=== PATIENT | male | born 1985 | race Caucasian/White ===

== ENCOUNTER 2020-07-22 15:31 | Observation (INO) | payer OTHER ==
--- NOTE | 2020-07-22 15:45 | Event Note ---
ED Screening Note ED Screening Note: severe abd pain hx liver disease/eso jeannie. denies current etoh This initial assessment/diagnostic orders/clinical plan/treatment(s) is/are subject to change based on patients health status, clinical progression and re- assessment by fellow clinical providers in the ED. Further treatment and workup at subsequent clinical providers discretion. Patient/guardian urged not to elope from the ED as their condition may be serious if not clinically assessed and managed. Initial orders include: labs/ER for eval
[2020-07-22 16:00] LABS: Basophils % (Auto) 0.6 % (0.0-1.8); Eosinophils % (Auto) 0.2 % (0.0-4.3); Hematocrit 31.8 % (35.5-45.6); Lymphocytes # (Auto) 0.7 K/mm3 (1.2-5.4); Lymphocytes % (Auto) 14.4 % (13.4-35.0); Mean Corpuscular HGB Conc 31 % (32-34); Mean Corpuscular Volume 73 fl (84-94); Monocytes # (Auto) 0.4 K/mm3 (0.0-0.8); Monocytes % (Auto) 7.5 % (0.0-7.3); Red Blood Count 4.35 M/mm3 (3.65-5.03)
[2020-07-22 16:09] LABS: INR 1.17 (0.87-1.13)
[2020-07-22 16:10] LABS: Bacteria,Urine 1+ /HPF (Negative); Mucus,Urine 1+ /HPF; WBC,Urine < 1.0 /HPF (0.0-6.0)
[2020-07-22 16:11] LABS: Platelet Count 60 K/mm3 (140-440)
[2020-07-22 16:11] LABS: Bilirubin,Urine NEG (Negative); Blood,Urine NEG (Negative); Color,Urine Amber (Yellow)
[2020-07-22 17:19] LABS: Alanine Aminotransferase 20 units/L (7-56); Albumin 4.3 g/dL (3.9-5); BUN/Creatinine Ratio 16; Blood Urea Nitrogen 8 mg/dL (9-20); Calcium 8.8 mg/dL (8.4-10.2); Hemolysis Index 3
[2020-07-22] MEDS ORDERED: ONDANSETRON 4 MG/2 ML INJ IV ONE (17:24)
--- NOTE | 2020-07-22 17:26 | Emergency Department Report ---
ED GI Bleed HPI - General Chief complaint: Abdominal Pain Stated complaint: ABDOMINAL PAIN Time Seen by Provider: 07/22/20 17:15 Source: patient Mode of arrival: Ambulatory Limitations: No Limitations - History of Present Illness Initial comments: 34-year-old male, history of alcoholic liver cirrhosis, esophageal varices, GI bleed, presents to ED with complaint of pain with associated hematemesis and bloody stools. States symptoms began this morning. He reports LUQ, LLQ, RLQ abdominal pain. Patient states he has had approximately 6 episodes of he matemesis. Patient states stools are brown with bright red blood mixed in. Patient underwent esophageal variceal banding in August 2019 and again in October 2019. Patient has not followed up with any outpatient GI appointments, he is no longer taking any GI medications. Patient states he stopped drinking on a daily basis last year. States he only drinks occasionally. States his last drink was last week. MD complaint: gross hematemesis, gross hematochezia -: This morning Location: LUQ, LLQ, RLQ Quality: cramping Consistency: constant Improves with: none Worsens with: none Context: history of GI bleed, liver disease, known esophageal varices Associated Symptoms: abdominal pain, nausea, vomiting - Related Data Previous Rx's Medication Instructions Recorded Last Taken Type Pantoprazole [Protonix TAB] 40 mg PO BID #60 tablet 08/28/19 08/25/19 Rx HYDROcodone/APAP 5-325 [[place] 1 each PO Q6HR PRN #10 tablet 08/30/19 08/25/19 Rx 5-325 mg TAB] Ferrous Sulfate [Feosol 325 MG tab] 325 mg PO BID #60 tablet 11/10/19 Unknown Rx Sucralfate [Carafate] 1 gm PO Q6HR #30 tablet 11/10/19 Unknown Rx Allergies Allergy/AdvReac Type Severity Reaction Status Date / Time No Known Allergies Allergy Verified 07/22/20 15:41 ED Review of Systems ROS: Stated complaint: ABDOMINAL PAIN Other details as noted in HPI ED Past Medical Hx - Past Medical History Hx Hypertension: No Hx Heart Attack/AMI: No Hx Congestive Heart Failure: No Hx Diabetes: No Hx Deep Vein Thrombosis: No Hx Liver Disease: Yes Hx Renal Disease: No Hx Sickle Cell Disease: No Hx Seizures: No Hx Kidney Stones: No Hx Asthma: No Hx COPD: No Hx Tuberculosis: No Hx Dementia: No Hx HIV: No Additional medical history: Esophageal varices - Surgical History Hx Coronary Stent: No Hx Open Heart Surgery: No Hx Pacemaker: No Hx Internal Defibrillator: No Hx Cholecystectomy: No Hx Appendectomy: No Additional Surgical History: Esophageal banding - Social History Smoking Status: Never Smoker Substance Use Type: None - Medications Home Medications: Home Medications Medication Instructions Recorded Confirmed Last Taken Type Pantoprazole [Protonix TAB] 40 mg PO BID #60 tablet 08/28/19 11/09/19 08/25/19 Rx HYDROcodone/APAP 5-325 [[place] 1 each PO Q6HR PRN #10 tablet 08/30/19 11/09/19 08/25/19 Rx 5-325 mg TAB] Ferrous Sulfate [Feosol 325 MG tab] 325 mg PO BID #60 tablet 11/10/19 Unknown Rx Sucralfate [Carafate] 1 gm PO Q6HR #30 tablet 11/10/19 Unknown Rx ED Physical Exam - General Limitations: No Limitations General appearance: alert, in no apparent distress - Head Head exam: Present: atraumatic, normocephalic - Eye Eye exam: Present: normal appearance, EOMI - ENT ENT exam: Present: mucous membranes moist - Neck Neck exam: Present: normal inspection - Respiratory Respiratory exam: Present: normal lung sounds bilaterally. Absent: respiratory distress - Cardiovascular Cardiovascular Exam: Present: normal rhythm, tachycardia - GI/Abdominal GI/Abdominal exam: Present: soft, tenderness (RLQ, LLQ, LUQ tender). Absent: distended - Rectal Rectal exam: Present: other (rectal exam performed, no stool present) - Extremities Exam Extremities exam: Present: normal inspection - Neurological Exam Neurological exam: Present: alert, oriented X3 - Psychiatric Psychiatric exam: Present: normal affect, normal mood - Skin Skin exam: Present: warm, dry, intact, normal color ED Course Vital Signs 07/22/20 07/22/20 07/22/20 15:45 18:35 18:38 Temperature 98.2 F 99.1 F Pulse Rate 111 H 110 H 111 H Respiratory 24 16 14 Rate Blood Pressure 173/113 Blood Pressure 137/94 [Left] O2 Sat by Pulse 98 97 98 Oximetry 07/22/20 07/22/20 07/22/20 19:57 20:08 21:35 Temperature Pulse Rate 98 H 95 H Respiratory 20 20 18 Rate Blood Pressure Blood Pressure 144/93 159/100 [Left] O2 Sat by Pulse 97 96 Oximetry - Consultations Consultation #1: 07/22/20 20:13 Spoke w/ FELIPE Solorio. Recommends admission. Keep NPO after MN. Will scope tomorrow. No Octreotide for now, only Protonix. ED Medical Decision Making - Lab Data Result diagrams: 07/22/20 15:41 07/22/20 15:41 - Radiology Data Radiology results: report reviewed, image reviewed - Medical Decision Making 34-year-old male with history of cirrhosis, esophageal varices, presents to ED with abdominal pain, hematemesis. No episodes of hematemesis here in the ED. CT abdomen/pelvis unremarkable for any acute findings. Hemoglobin is 10. Patient initially tachycardic upon arrival, heart rate has improved with IV fluids and pain medication. Patient is currently hemodynamically stable. I have spoken with on-call GI, who recommends admission for scope tomorrow since patient has not followed up with any outpatient GI appointments and is not currently taking any of his GI medications. Patient will be admitted to hospitalist, Dr. Aguilera, for further management. - Differential Diagnosis GI bleed, esophageal varices, ulcer Critical care attestation.: If time is entered above; I have spent that time in minutes in the direct care of this critically ill patient, excluding procedure time. ED Disposition Clinical Impression: Abdominal pain, GI bleed Disposition: OP ADMIT IP TO THIS HOSP Is pt being admited?: Yes Condition: Stable Time of Disposition: 21:31
[2020-07-22] MEDS ORDERED: MORPHINE 2 MG/1 ML INJ IV ONE ×2 (17:45→19:58)
[2020-07-22] MEDS ORDERED: SODIUM CHLORIDE 0.9% 1000 ML 1,000 ML IV ONE (18:46)
--- NOTE | 2020-07-22 19:53 | Cat Scan Report ---
CT ABDOMEN AND PELVIS WITH CONTRAST INDICATION: abd pain, hematemesis CONTRAST: 100 cc Omnipaque 300 IV COMPARISON: 08/29/[address] scans at this location are performed using CT dose reduction for ALARA by means of automated e xposure control. FINDINGS: A small noncalcified nodule is seen in the lateral segment of the right middle lobe in an a froylan not visualized on prior study. Lung bases otherwise are clear. No pneumoperitoneum is seen. No significant abdominal wall herniation is noted. No lymphadenopathy is seen. No free fluid is noted. Mild colonic diverticulosis is seen without evidence of diverticulitis . Appendix appears within normal limits. No evidence of bowel obstruction is seen. Some portions of t he colon are not well evaluated due to lack of distention but no definite inflammation is seen. No ur inary obstructive changes or obvious calculi are seen. No focal inflammatory changes are noted. Fatty infiltration of the liver is again seen with hepatomegaly. Liver measures 19.7 cm in length. Heterog enous appearance is probably due to increasing fatty infiltration with innumerable tiny hypodensity s een likely related to this process though I cannot completely exclude an infiltrative process. The sp fran is mildly enlarged and has a length of 15.3 cm. No focal splenic abnormalities are seen. No urin irais obstructive changes are seen. No abdominal masses are noted. IMPRESSION: 1. No definite acute abnormalities are seen 2. Mildly worsening fatty infiltration of the liver with hepatomegaly. Innumerable tiny hypodensities are seen throughout the liver likely related to worsening fatty infiltration but I would suggest fol low-up and clinical correlation. Signer Name: Suhas Rivera MD Signed: 07/22/2020 7:48 PM Workstation Name: [id number]
[2020-07-22] MEDS ORDERED: PANTOPRAZOLE 40 MG INJ IV ONE (20:12)
[2020-07-22] MEDS ORDERED: ONDANSETRON 4 MG/2 ML INJ IV PRN (21:36)
[2020-07-22] MEDS ORDERED: SODIUM CHLORIDE 0.9% 1000 ML 1,000 ML IV SCH (21:45)
--- NOTE | 2020-07-22 21:46 | History and Physical Report ---
History of Present Illness Date of examination: 07/22/20 Date of admission: 07/22/2020 Chief complaint: Hematemesis Abdominal Pain History of present illness: 34-year-old male with known history of alcoholic liver disease, esophageal varices and GI bleed presenting to the emergency room today complaining of hematemesis and also having some bloody stool. Symptoms are said to have started early this morning. He has been having lower abdominal pain. He denies any fever or chills, no chest pain or shortness of breath, no headache or dizziness. Patient indicates that he has had about 6 episodes of hematemesis prior to presenting in the emergency room. He has had some brown stool with mixed bright red blood earlier today. Patient was seen by GI in August and in October 2019 and had a esophageal banding. He has not followed up with any accounts payable manager since then because of insurance issues. Patient is admits that he continues to drink alcohol but he has reduced the amount. Last alcohol intake was about 2 days ago. Upon arrival in the emergency room patient was found to be tachycardic. Work-up in the emergency room, CT scan of the abdomen and pelvis was unremarkable. Hemoglobin was found to be 10. Overhead Door Technician Dr. Garcia was consulted by the ER physician and recommendation was to place patient on Protonix IV. Patient will be evaluated for endoscopy in the a.m. Patient is being admitted for GI bleed. Past History Past Medical History: liver disease Past Surgical History: Other (Esophageal Banding) Social history: alcohol abuse (Last alcohol intake was 2 days ago) Family history: no significant family history Medications and Allergies Allergies Allergy/AdvReac Type Severity Reaction Status Date / Time No Known Allergies Allergy Verified 07/22/20 15:41 Home Medications Medication Instructions Recorded Confirmed Last Taken Type Pantoprazole [Protonix TAB] 40 mg PO BID #60 tablet 08/28/19 11/09/19 08/25/19 Rx HYDROcodone/APAP 5-325 [[place] 1 each PO Q6HR PRN #10 tablet 08/30/19 11/09/19 08/25/19 Rx 5-325 mg TAB] Ferrous Sulfate [Feosol 325 MG tab] 325 mg PO BID #60 tablet 11/10/19 Unknown Rx Sucralfate [Carafate] 1 gm PO Q6HR #30 tablet 11/10/19 Unknown Rx Active Meds: Active Medications Sodium Chloride (Nacl 0.9% 1000 Ml) 1,000 mls @ 125 mls/hr IV DIRECT STEPHAN Morphine Sulfate (Morphine 2 Mg/1 Ml Inj) 2 mg IV Q4H PRN PRN Reason: Pain, Moderate (4-6) Ondansetron HCl (Ondansetron 4 Mg/2 Ml Inj) 4 mg IV Q8H PRN PRN Reason: Nausea And Vomiting Sodium Chloride (Sodium Chloride 0.9% 10 Ml Flush Syringe) 10 ml IV BID STEPHAN Sodium Chloride (Sodium Chloride 0.9% 10 Ml Flush Syringe) 10 ml IV PRN PRN PRN Reason: LINE FLUSH Review of Systems Constitutional: no fever, no chills Ears, nose, mouth and throat: no nasal congestion, no sore throat Cardiovascular: no chest pain, no palpitations Respiratory: no cough, no shortness of breath Gastrointestinal: abdominal pain, nausea, vomiting, hematemesis, BRBPR Genitourinary Male: no dysuria, no hematuria, no urinary frequency Rectal: bleeding, no pain Integumentary: no rash, no pruritis Neurological: no headaches, no confusion Psychiatric: no anxiety, no depression Exam - Constitutional Vitals: Temp Pulse Resp BP Pulse Ox 99.1 F 95 H 18 159/100 96 07/22/20 18:38 07/22/20 21:35 07/22/20 21:35 07/22/20 21:35 07/22/20 21:35 General appearance: Present: no acute distress, well-nourished - EENT Eyes: Present: PERRL, EOM intact. Absent: scleral icterus ENT: hearing intact, clear oral mucosa, dentition normal - Neck Neck: Present: supple, normal ROM - Respiratory Respiratory effort: normal Respiratory: bilateral: CTA - Cardiovascular Rhythm: regular Heart Sounds: Present: S1 & S2. Absent: gallop, systolic murmur, diastolic murmur, rub, click - Extremities Extremities: no ischemia, pulses intact, pulses symmetrical, No edema, normal temperature, normal color, Full ROM Peripheral Pulses: within normal limits - Abdominal General gastrointestinal: Present: soft, tender (Mild right upper and right lo wer quadrant tenderness,no guarding. No rebound tenderness.), non-distended, normal bowel sounds. Absent: hepatomegaly, splenomegaly, mass - Integumentary Integumentary: Present: clear, warm, dry. Absent: rash - Musculoskeletal Musculoskeletal: strength equal bilaterally - Psychiatric Psychiatric: appropriate mood/affect, intact judgment & insight, memory intact, cooperative - Neurologic Neurologic: CNII-XII intact, no focal deficits, moves all extremities, other (Mildly anxious and tremulous) Results - Labs CBC & Chem 7: 07/22/20 15:41 07/22/20 15:41 Labs: Abnormal lab results 07/22/20 07/22/20 07/22/20 Range/Units 15:41 15:41 15:41 Hgb 10.0 L (11.8-15.2) gm/dl Hct 31.8 L (35.5-45.6) % MCV 73 L (84-94) fl MCH 23 L (28-32) pg MCHC 31 L (32-34) % RDW 20.0 H (13.2-15.2) % Plt Count 60 L (140-440) K/mm3 [place] % (Auto) 7.5 H (0.0-7.3) % Lymph # (Auto) 0.7 L (1.2-5.4) K/mm3 Seg Neutrophils % 77.3 H (40.0-70.0) % INR 1.17 H (0.87-1.13) BUN 8 L (9-20) mg/dL Creatinine 0.5 L (0.8-1.3) mg/dL AST 58 H (5-40) units/L Alkaline Phosphatase 219 H (35-129) units/L Lipase 93 H (13-60) units/L Assessment and Plan - Patient Problems (1) GI bleed Current Visit: Yes Status: Acute Plan to address problem: Patient has been made n.p.o. after midnight. Patient has known history of alcoholic liver disease. We will monitor CBC. Consult already placed to accounts payable manager for evaluation. (2) Abdominal pain Current Visit: Yes Status: Acute Plan to address problem: Patient has known history of alcoholic liver disease. CT scan of the abdomen and pelvis was unremarkable. Patient placed on IV analgesic medication as needed for pain. (3) Alcoholic liver disease Current Visit: No Status: Acute Plan to address problem: Patient counseled on quitting alcohol abuse. Will monitor liver enzymes. We await further evaluation and recommendation by accounts payable manager. (4) DVT prophylaxis Current Visit: No Status: Acute Plan to address problem: Patient placed on sequential compression device. (5) Full code status Current Visit: Yes Status: Acute Plan to address problem: Patient is full code.
[2020-07-22] MEDS ORDERED: THIAMINE 100 MG, FOLIC ACID 1 MG, MULTIPLE VITAMIN INJ, ADULT 10 ML in SODIUM CHLORIDE ... IV ONE (23:05)
[2020-07-22] MEDS: MORPHINE 2 MG/1 ML INJ IV PRN (23:09)
[2020-07-23] MEDS: MORPHINE 2 MG/1 ML INJ IV PRN ×2 (04:54→18:01)
[2020-07-23 05:28] LABS: Eosinophils % (Auto) 0.8 % (0.0-4.3); Monocytes # (Auto) 0.6 K/mm3 (0.0-0.8); Monocytes % (Auto) 10.9 % (0.0-7.3)
[2020-07-23 05:31] LABS: Hematocrit 28.8 % (35.5-45.6); Red Blood Count 3.94 M/mm3 (3.65-5.03)
[2020-07-23 05:32] LABS: INR 1.23 (0.87-1.13)
[2020-07-23 05:33] LABS: Blood Urea Nitrogen 7 mg/dL (9-20); Calcium 7.8 mg/dL (8.4-10.2); Hemolysis Index 0
[2020-07-23 05:36] LABS: Basophils % (Auto) 0.4 % (0.0-1.8); Lymphocytes % (Auto) 19.2 % (13.4-35.0); Mean Corpuscular HGB Conc 31 % (32-34); Mean Corpuscular Volume 73 fl (84-94); Platelet Count 52 K/mm3 (140-440); Red Cell Distribution Width 19.2 % (13.2-15.2)
[2020-07-23 05:38] LABS: BUN/Creatinine Ratio 12
[2020-07-23] MEDS: PANTOPRAZOLE 40 MG INJ IV SCH ×2 (10:08→22:23)
[2020-07-23] MEDS: HYDROmorphone 1 MG/1 ML INJ IV PRN ×2 (14:16→23:19)
--- NOTE | 2020-07-23 15:13 | Anesthesia Consultation ---
Anesthesia Consult and Med Hx - Airway Anesthetic Teeth Evaluation: Good ROM Head & Neck: Adequate Mental/Hyoid Distance: Adequate Mallampati Class: Class III Intubation Access Assessment: Possibly Difficult - Pre-Operative Health Status ASA Pre-Surgery Classification: ASA3 Proposed Anesthetic Plan: MAC - Pulmonary Hx Respiratory Symptoms: No - Cardiovascular System Hx Hypertension: No Hx Heart Attack/AMI: No - Central Nervous System CVA: No - Endocrine Hx Renal Disease: No Hx Cirrhosis: Yes (EtOH) Hx Insulin Dependent Diabetes: No Hx Non-Insulin Dependent Diabetes: No Hx Thyroid Disease: No - Hematic Hx Anemia: Yes (w/ thrombocytopenia) - Other Systems Hx Alcohol Use: Yes (EtOH abuse)
--- NOTE | 2020-07-23 15:26 | Anesthesia Day of Surgery ---
Anesthesia Day of Surgery - Day of Surgery Patient Examined: Yes Patient H&P Reviewed: Yes Patient is NPO: Yes
[2020-07-23] MEDS: SODIUM CHLORIDE 0.9% 1000 ML 1,000 ML IV SCH ×2 (15:30→23:19)
[2020-07-23] MEDS ORDERED: propofoL 200 MG/20 ML VIAL IV ONE ×2 (16:11→16:16)
[2020-07-23] MEDS ORDERED: LIDOCAINE MPF (2%) 20 MG/1 ML VIAL 5 ML ONE (16:11)
[2020-07-23] MEDS ORDERED: MIDAZOLAM 2 MG/2 ML INJ ONE (16:15)
--- NOTE | 2020-07-23 16:30 | Post Operative Note ---
Pre-op diagnosis: gi bleed Post-op diagnosis: same Findings: EGD: Grade I varices w/o bleeding stigmata - small hiatal hernia - moderate diffuse gastritis of the gastric body (bx's) - otherwise normal Procedure: EGD w/ bx Anesthesia: MAC Surgeon: JEFF ISBELL Estimated blood loss: none Pathology: list Specimen disposition: to lab Condition: stable Disposition: floor
--- NOTE | 2020-07-23 16:54 | Progress Note ---
Assessment and Plan Assessment and Plan - Patient Problems (1) GI bleed Current Visit: Yes Status: Acute Plan to address problem: Stable No further bleeding (2) Abdominal pain Current Visit: Yes Status: Acute Plan to address problem: Patient has known history of alcoholic liver disease. CT scan of the abdomen and pelvis was unremarkable. Patient placed on IV analgesic medication as needed for pain. (3) Alcoholic liver disease Current Visit: No Status: Acute Plan to address problem: Patient counseled on quitting alcohol abuse. Will monitor liver enzymes. We await further evaluation and recommendation by qc analyst. (4) DVT prophylaxis Current Visit: No Status: Acute Plan to address problem: Patient placed on sequential compression device. (5) Full code status Current Visit: Yes Status: Acute Plan to address problem: Patient is full code. Subjective Date of service: 07/23/20 Principal diagnosis: GI bleeding Interval history: 34-year-old male with known history of alcoholic liver disease, esophageal varices and GI bleed presenting to the emergency room today complaining of hematemesis and also having some bloody stool. Symptoms are said to have started early this morning. He has been having lower abdominal pain. He denies any fever or chills, no chest pain or shortness of breath, no headache or dizziness. Patient indicates that he has had about 6 episodes of hematemesis prior to presenting in the emergency room. He has had some brown stool with mixed bright red blood earlier today. Patient was seen by GI in August and in October 2019 and had a esophageal banding. He has not followed up with any qc analyst since then because of insurance issues. Patient is admits that he continues to drink alcohol but he has reduced the amount. Last alcohol intake was about 2 days ago. Upon arrival in the emergency room patient was found to be tachycardic. Work-up in the emergency room, CT scan of the abdomen and pelvis was unremarkable. Hemoglobin was found to be 10. Chief Operator Dr. Garcia was consulted by the ER physician and recommendation was to place patient on Protonix IV. Patient will be evaluated for endoscopy in the a.m. Patient is being admitted for GI bleed. S/p EGD Grade 1 varices No active bleeding Objective - Constitutional Vitals: Vital Signs - 12hr 07/23/20 07/23/20 07/23/20 08:19 12:30 15:15 Temperature 98.1 F 98.1 F 98.6 F Pulse Rate 91 H 101 H 91 H Respiratory 18 18 17 Rate Blood Pressure 153/91 151/101 162/92 O2 Sat by Pulse 99 100 97 Oximetry 07/23/20 15:20 Temperature 98.6 F Pulse Rate 91 H Respiratory 17 Rate Blood Pressure 162/92 O2 Sat by Pulse 97 Oximetry General appearance: Present: no acute distress, well-nourished - EENT Eyes: PERRL, EOM intact ENT: hearing intact, clear oral mucosa Ears: bilateral: normal - Neck Neck: supple, normal ROM - Respiratory Respiratory effort: normal Respiratory: bilateral: CTA - Breasts Breasts: normal - Cardiovascular Heart rate: 78 Rhythm: regular Heart Sounds: Present: S1 & S2. Absent: gallop, rub Extremities: pulses intact, No edema, normal color, Full ROM - Gastrointestinal General gastrointestinal: Present: soft, non-tender, non-distended, normal bowel sounds - Genitourinary Male genitourinary: normal - Integumentary Integumentary: clear, warm, dry - Musculoskeletal Musculoskeletal: 1, strength equal bilaterally - Neurologic Neurologic: moves all extremities - Psychiatric Psychiatric: memory intact, appropriate mood/affect, intact judgment & insight - Labs CBC & Chem 7: 07/24/20 05:16 07/24/20 05:16 Labs: Abnormal lab results 07/22/20 07/23/20 07/23/20 Range/Units 15:41 04:45 04:45 Hgb 9.0 L (11.8-15.2) gm/dl Hct 28.8 L (35.5-45.6) % MCV 73 L (84-94) fl MCH 23 L (28-32) pg MCHC 31 L (32-34) % RDW 19.2 H (13.2-15.2) % Plt Count 52 L (140-440) K/mm3 [place] % (Auto) 10.9 H (0.0-7.3) % Lymph # (Auto) 1.0 L (1.2-5.4) K/mm3 PT 15.3 H (12.2-14.9) Sec. INR 1.23 H (0.87-1.13) Sodium (137-145) mmol/L Potassium (3.6-5.0) mmol/L Chloride (98-107) mmol/L BUN 8 L (9-20) mg/dL Creatinine 0.5 L (0.8-1.3) mg/dL Calcium (8.4-10.2) mg/dL AST 58 H (5-40) units/L Alkaline Phosphatase 219 H (35-129) units/L Lipase 93 H (13-60) units/L 03// Range/Units 04:45 Hgb (11.8-15.2) gm/dl Hct (35.5-45.6) % MCV (84-94) fl MCH (28-32) pg MCHC (32-34) % RDW (13.2-15.2) % Plt Count (140-440) K/mm3 [place] % (Auto) (0.0-7.3) % Lymph # (Auto) (1.2-5.4) K/mm3 PT (12.2-14.9) Sec. INR (0.87-1.13) Sodium 135 L (137-145) mmol/L Potassium 3.5 L (3.6-5.0) mmol/L Chloride 96.9 L (98-107) mmol/L BUN 7 L (9-20) mg/dL Creatinine 0.6 L (0.8-1.3) mg/dL Calcium 7.8 L (8.4-10.2) mg/dL AST (5-40) units/L Alkaline Phosphatase (35-129) units/L Lipase (13-60) units/L
--- NOTE | 2020-07-23 17:19 | Operative Report ---
PROCEDURE: EGD with cold biopsy. INDICATIONS: 1. Anemia. 2. GI bleed. MEDICATIONS: Propofol per CEMETERY COUNSELOR. COMPLICATIONS: None. DESCRIPTION OF PROCEDURE: The patient brought to the procedure suite. The patient had procedure discussed with him at length. All risks, complications, and benefits discussed after which the patient signed for the procedure performed. The patient was placed in left lateral decubitus position. Mouth block was placed in the patient's oral cavity. After adequate sedation medication as above, endoscope placed in mouth and brought to the level of the second portion of duodenum. Retroflexion view performed. The patient's vital signs remained stable throughout the procedure. FINDINGS: There were two columns of grade 1 varices without bleeding stigmata noted at distal third of the esophagus. No interventions were necessary or done. There was a small hiatal hernia at GE junction at 40 cm from the gums. Esophagus otherwise appeared to be normal. There was moderate diffuse gastritis noted in the gastric body. Biopsies were taken and sent to pathology. No obvious bleeding was noted. Mild gastritis noted in the antrum. The stomach otherwise appeared to be normal. Duodenum appeared to be normal. Retroflexion view performed in the stomach showed no other pathology other than noted above. The patient tolerated the procedure well. No complications during the procedure. IMPRESSION: 1. Grade 1 varices without bleeding stigmata. 2. Small hiatal hernia. 3. Moderate gastritis throughout the gastric body with signs of portal gastropathy with biopsies performed. 4. Otherwise, grossly normal EGD. RECOMMENDATIONS: 1. Follow up biopsy results. 2. If H. pylori positive, treat. 3. PPI daily. 4. Start p.o. and advance his diet. 5. If H and H stable in a.m., okay to discharge from GI standpoint. JOB# [id number] CAB/NTS
--- NOTE | 2020-07-24 01:41 | Consultation ---
REFERRING PHYSICIAN: Gina Reyes MD INDICATION: 1. Cirrhosis. 2. Gastrointestinal bleed. HISTORY OF PRESENT ILLNESS: The patient is a 34-year-old male with history of alcohol liver disease and esophageal varices with GI bleed in the past. The patient complains of reported some hematemesis with reported small amount of bloody stools. The patient reports symptoms started this morning. He reports some mild lower abdominal pain. He denies any fevers or chills. He reported he noted 6 bouts of hematemesis before coming to the Emergency Room. The patient has a history of esophageal varices, status post banding in August and October of last year. He is now followed up with a automotive collision repair instructor and he does admit to continue to drink alcohol. Denies any specific complaints. The patient subsequently was admitted. GI consulted for aid in management. PAST MEDICAL HISTORY: Liver disease with history of varices, status post banding in the past. MEDICATIONS: Reviewed and updated in chart. ALLERGIES: No known drug allergies. SOCIAL HISTORY: Reports alcohol abuse. FAMILY HISTORY: Negative for colon cancer, IBD, or liver disease. REVIEW OF SYSTEMS: GENERAL: Reports some weakness. HEENT: No visual complaints or tinnitus. PULMONARY: Denies shortness of breath. No cough. No chest pain. GASTROINTESTINAL: Reported hematemesis. All points of 13-point review of systems otherwise negative. PHYSICAL EXAMINATION: VITAL SIGNS: Temperature of 98.6, pulse 91, respirations 18, blood pressure 162/90. GENERAL: Fairly nourished male, in no acute distress. HEENT: Pupils equal, round and reactive. PULMONARY: Clear to auscultation bilaterally. CARDIOVASCULAR: Regular rate and rhythm. Normal S1, S2. ABDOMEN: nt, nd, soft. SKIN: No obvious rashes. LABORATORY DATA: Pertinent for white count 5.1, hemoglobin and hematocrit of 9 and 28.8, platelet count of 52. Coags pertinent for PT of 15.3, INR of 1.23. Chem-7; sodium of 135, potassium 3.5, chloride 97, CO2 of 28, BUN and creatinine of 7 and 0.6, AST and ALT of 58 and 20, alkaline phosphatase of 219, total bilirubin of 1.2. CT scan of abdomen and pelvis with contrast performed on 07/22/2020 showed no acute abnormalities with noted fatty liver. ASSESSMENT: A 34-year-old male with history of chronic alcohol abuse and history of esophageal varices in the past, who now presents with reported nausea, vomiting with reported bloody hematemesis. Possibility of esophageal varices versus gastritis versus peptic ulcer disease versus other. PLAN: 1. Follow hematocrit and transfuse as needed. 2. N.p.o. 3. PPI IV drip. 4. Further recommendation based on EGD results. [facility]# [id number] CAB/NTS MTDD
[2020-07-24 06:35] LABS: Basophils % (Auto) 0.3 % (0.0-1.8); Eosinophils # (Auto) 0.1 K/mm3 (0.0-0.4); Eosinophils % (Auto) 1.3 % (0.0-4.3); Hematocrit 30.2 % (35.5-45.6); Hemoglobin 9.6 gm/dl (11.8-15.2); Lymphocytes # (Auto) 0.9 K/mm3 (1.2-5.4); Lymphocytes % (Auto) 17.8 % (13.4-35.0); Mean Corpuscular HGB Conc 32 % (32-34); Mean Corpuscular Volume 73 fl (84-94); Monocytes # (Auto) 0.4 K/mm3 (0.0-0.8); Monocytes % (Auto) 8.9 % (0.0-7.3); Red Blood Count 4.14 M/mm3 (3.65-5.03); Red Cell Distribution Width 19.3 % (13.2-15.2)
[2020-07-24 06:36] LABS: Platelet Count 57 K/mm3 (140-440)
[2020-07-24 06:43] LABS: Alanine Aminotransferase 17 units/L (7-56); Albumin 3.9 g/dL (3.9-5); Blood Urea Nitrogen 7 mg/dL (9-20); Hemolysis Index 1
[2020-07-24 07:16] LABS: BUN/Creatinine Ratio 12
[2020-07-24] MEDS: SODIUM CHLORIDE 0.9% 1000 ML 1,000 ML IV SCH (10:03)
[2020-07-24] MEDS: MORPHINE 2 MG/1 ML INJ IV PRN (10:03)
[2020-07-24] MEDS: PANTOPRAZOLE 40 MG INJ IV SCH (10:03)
[2020-07-24 12:11] VITALS: BP 110/80
[2020-07-24] MEDS ORDERED: POTASSIUM CHLORIDE ER 20 MEQ TAB PO ONE (14:54)
--- NOTE | 2020-07-24 15:24 | Discharge Summary ---
Providers - Providers Date of Admission: 07/22/20 21:32 Date of discharge: 07/24/20 Attending physician: CINTHIA COBOS 07/22/20 20:14 Consult to Physician [CONS] Stat Comment: Dr. Garcia spoke with Dr. Colon @ 2009 Consulting Provider: FRANCK COLON Physician Instructions: Reason For Exam: GI bleed Primary care physician: CH[employer] SCREEN TENDER Hospitalization Condition: Stable Hospital course: Subjective Date of service: 07/24/20 Principal diagnosis: GI bleeding Interval history: 34-year-old male with known history of alcoholic liver disease, esophageal varices and GI bleed presenting to the emergency room today complaining of hematemesis and also having some bloody stool. Symptoms are said to have started early this morning. He has been having lower abdominal pain. He denies any fever or chills, no chest pain or shortness of breath, no headache or dizziness. Patient indicates that he has had about 6 episodes of hematemesis prior to presenting in the emergency room. He has had some brown stool with mixed bright red blood earlier today. Patient was seen by GI in August and in October 2019 and had a esophageal banding. He has not followed up with any clinical engineering manager since then because of insurance issues. Patient is admits that he continues to drink alcohol but he has reduced the amount. Last alcohol intake was about 2 days ago. Upon arrival in the emergency room patient was found to be tachycardic. Work-up in the emergency room, CT scan of the abdomen and pelvis was unremarkable. Hemoglobin was found to be 10. [employer] Dr. Garcia was consulted by the ER physician and recommendation was to place patient on Protonix IV. Patient will be evaluated for endoscopy in the a.m. Patient is being admitted for GI bleed. S/p EGD Grade 1 varices No active bleeding 07/24/20 No active bleeding Assessment and Plan - Patient Problems (1) GI bleed Current Visit: Yes Status: Acute Plan to address problem: Stable No further bleeding (2) Abdominal pain Current Visit: Yes Status: Acute Plan to address problem: Patient has known history of alcoholic liver disease. CT scan of the abdomen and pelvis was unremarkable. Patient placed on IV analgesic medication as needed for pain. (3) Alcoholic liver disease Current Visit: No Status: Acute Plan to address problem: Patient counseled on quitting alcohol abuse. Will monitor liver enzymes. We await further evaluation and recommendation by clinical engineering manager. (4) DVT prophylaxis Current Visit: No Status: Acute Plan to address problem: Patient placed on sequential compression device. (5) Full code status Current Visit: Yes Status: Acute Plan to address problem: Patient is full code. Disposition: DC-01 TO HOME OR SELFCARE Time spent for discharge: 35 minutes - Discharge Diagnoses (1) GI bleed Status: Acute (2) Alcohol dependence Status: Acute (3) Alcoholic liver disease Status: Acute (4) DVT prophylaxis Status: Acute Core Measure Documentation - Palliative Care Palliative Care/ Comfort Measures: Not Applicable - Core Measures Any of the following diagnoses?: none Exam - Constitutional Vitals: Temp Pulse Resp BP Pulse Ox 98.9 F 87 16 110/80 98 07/24/20 12:10 07/24/20 12:10 07/24/20 12:10 07/24/20 12:10 07/24/20 12:10 General appearance: Present: no acute distress, well-nourished - EENT Eyes: Present: PERRL ENT: hearing intact, clear oral mucosa - Neck Neck: Present: supple, normal ROM - Respiratory Respiratory effort: normal Respiratory: bilateral: CTA - Cardiovascular Heart rate: 78 Rhythm: regular Heart Sounds: Present: S1 & S2. Absent: rub, click - Extremities Extremities: pulses symmetrical, No edema Peripheral Pulses: within normal limits - Abdominal General gastrointestinal: Present: soft, non-tender, non-distended, normal bowel sounds Male genitourinary: Present: normal - Rectal Rectal Exam: deferred - Integumentary Integumentary: Present: clear, warm, dry - Musculoskeletal Musculoskeletal: gait normal, strength equal bilaterally - Psychiatric Psychiatric: appropriate mood/affect, intact judgment & insight - Neurologic Neurologic: CNII-XII intact, moves all extremities Plan Activity: no restrictions Diet: low salt Follow up with: ARIK BOX MD [Primary Care Provider] - 3-5 Days JEFF ISBELL MD [Staff Physician] - 7 Days
[2020-07-25] MEDS ORDERED: PANTOPRAZOLE 40 MG TAB PO SCH (07:30)
== END 2020-07-24 16:17 | disposition home or self-care (01) ==
LOC: ED 15:31 → 4A 21:32
PROVIDERS: ADMIT Internal Medicine Geriatric Medicine; ATTEND Internal Medicine
DX: K92.2 Gastrointestinal hemorrhage, unspecified (principal); K70.9 Alcoholic liver disease, unspecified; I85.00 Esophageal varices without bleeding; Z79.899 Other long term (current) drug therapy
CPT/HCPCS: 36415; 43239; 74177; 80048; 80053; 81001; 83690; 85025; 85610; 86850; 86900; 86901; 87116; 88305; 88342; 96361; 96365; 96375; 96376; 99285; C9113; G0378; J1170; J2250; J2270; J2405; J2704; J3411; J7030; Q9967; 87641

== ENCOUNTER 2021-12-28 21:50 | Inpatient (IN) | payer SELFPAY ==
[2021-12-28] MEDS ORDERED: SODIUM CHLORIDE 0.9% 1000 ML 1,000 ML IV ONE (23:08)
[2021-12-28] MEDS ORDERED: LORazepam 2 MG/ML VIAL IV ONE (23:08)
--- NOTE | 2021-12-28 23:14 | Emergency Department Report ---
ED Palpitations HPI - General Chief Complaint: Arrhythmia/Palpitations Stated Complaint: WEAKNESS, RAPID HEART RATE Time Seen by Provider: 12/28/21 22:31 Source: patient, EMS Mode of arrival: Stretcher Limitations: Language Barrier - History of Present Illness Initial Comments: 36 yo M who present with heart palpitation that started suddenly this evening while at home associated with generalized body muscle shakiness. Pt reports that he drink heavily only on Weekends and denies any illicit drug use. No other modifying or associated factors reported. MD Complaint: rapid heart beat, palpitations - Related Data Previous Rx's Medication Instructions Recorded Last Taken Type Ferrous Sulfate [Feosol 325 MG tab] 325 mg PO BID #60 tablet 07/24/20 Unknown Rx LORazepam [Ativan] 0.5 mg PO Q6H PRN #20 tablet 07/24/20 Unknown Rx Pantoprazole [Protonix TAB] 40 mg PO BID #60 tablet 07/24/20 Unknown Rx Sucralfate [Carafate] 1 gm PO Q6HR #60 tablet 07/24/20 Unknown Rx Allergies Allergy/AdvReac Type Severity Reaction Status Date / Time No Known Allergies Allergy Verified 07/22/20 15:41 ED Review of Systems ROS: Stated complaint: WEAKNESS, RAPID HEART RATE Other details as noted in HPI Comment: All other systems reviewed and negative Respiratory: denies: shortness of breath, wheezing Cardiovascular: palpitations. denies: chest pain Endocrine: other (shakiness ) Psychiatric: anxiety ED Past Medical Hx - Past Medical History Hx Hypertension: No Hx Heart Attack/AMI: No Hx Congestive Heart Failure: No Hx Diabetes: No Hx Deep Vein Thrombosis: No Hx Liver Disease: Yes Hx Renal Disease: No Hx Sickle Cell Disease: No Hx Seizures: No Hx Kidney Stones: No Hx Asthma: No Hx COPD: No Hx Tuberculosis: No Hx Dementia: No Hx HIV: No Additional medical history: Esophageal varices - Surgical History Hx Coronary Stent: No Hx Open Heart Surgery: No Hx Pacemaker: No Hx Internal Defibrillator: No Hx Cholecystectomy: No Hx Appendectomy: No Additional Surgical History: Esophageal banding - Social History Smoking Status: Unknown if ever smoked - Medications Home Medications: Home Medications Medication Instructions Recorded Confirmed Last Taken Type Ferrous Sulfate [Feosol 325 MG tab] 325 mg PO BID #60 tablet 07/24/20 Unknown Rx LORazepam [Ativan] 0.5 mg PO Q6H PRN #20 tablet 07/24/20 Unknown Rx Pantoprazole [Protonix TAB] 40 mg PO BID #60 tablet 07/24/20 Unknown Rx Sucralfate [Carafate] 1 gm PO Q6HR #60 tablet 07/24/20 Unknown Rx ED Physical Exam - General Limitations: Language Barrier General appearance: alert, in no apparent distress, anxious - Head Head exam: Present: atraumatic, normal inspection - Eye Eye exam: Absent: normal appearance Pupils: Present: normal accommodation - ENT ENT exam: Present: normal exam, normal orophraynx, mucous membranes dry - Neck Neck exam: Present: normal inspection, full ROM. Absent: tenderness - Respiratory Respiratory exam: Present: normal lung sounds bilaterally. Absent: respiratory distress, chest wall tenderness, accessory muscle use - Cardiovascular Cardiovascular Exam: Present: normal rhythm, tachycardia, normal heart sounds - GI/Abdominal GI/Abdominal exam: Present: soft, tenderness (epigastric ), normal bowel sounds - Extremities Exam Extremities exam: Present: normal inspection, full ROM, normal capillary refill. Absent: tenderness, pedal edema - Back Exam Back exam: Absent: tenderness - Neurological Exam Neurological exam: Present: alert, oriented X3 - Psychiatric Psychiatric exam: Present: normal affect, normal mood, anxious - Skin Skin exam: Present: warm, dry ED Course Vital Signs 12/28/21 12/28/21 12/29/21 21:58 22:38 02:56 Temperature 100.9 F H Pulse Rate 160 H 78 108 H Respiratory 16 14 24 Rate Blood Pressure 147/97 167/71 139/94 [Right] O2 Sat by Pulse 99 96 96 Oximetry 12/29/21 05:33 Temperature 99.2 F Pulse Rate 100 H Respiratory 25 H Rate Blood Pressure 147/91 [Right] O2 Sat by Pulse 98 Oximetry ED Medical Decision Making - Lab Data Result diagrams: 12/28/21 23:18 12/28/21 23:18 - EKG Data -: EKG Interpreted by Me EKG shows normal: sinus rhythm Rate: tachycardia - EKG Data 12/28/21 23:14 Noted with sinus tachycardia at a rate of 132 bpm which right bundle branch block and no ST elevation or depression noted in this abnormal ECG - Medical Decision Making Here with palpitation associated with generalized body shakiness-- unsure the c ause but with history alcohol drinking withdrawal could not be overemphasis -but differential could be and not limited to seizure/postictal, symptomatic anemia, myocardial infarction, pulmonary embolism, anxiety, CVA especially posterior stroke or thyroid abnormality--in order to rule those out I will go ahead and order routine cardiopulmonary work-up that include troponin, EKG, chest x-ray, BNP, CKMB, and CBC, CMP, Urinalysis and thyroid panel for any correctable infectious process or electrolyte abnormality as a cause. Will also order CT brain for any intracranial abnormality as mentioned above. In the meantime will give ivf ns 1L bolus for hydration as most are dehydrated and ativan for potential seizure or alcohol withdrawal while waiting for the above labs-- Lab reviewed and noted with elevated AST at 233/ALT at 33 with elevated T bili at 3.2--which is consistent with alcoholic pattern-- also noted with leukocytosis that is likely reactive considering his generalized muscle sha kiness. Despite treatment with versed patient continue to be tachycardic but with improved shakiness. Pt still could not put much weight on his legs due to unstadiness. At this point Dr Rojo consulted who accept pt for further evaluation and treatment for alcohol withdrawal Critical care attestation.: If time is entered above; I have spent that time in minutes in the direct care of this critically ill patient, excluding procedure time. ED Disposition Clinical Impression: Palpitations, Shakiness Alcohol withdrawal Qualifiers: Complication of substance-induced condition: with unspecified complication Qualified Code(s): F10.939 - Alcohol use, unspecified with withdrawal, unspecified Disposition: ADMITTED INPATIENT Is pt being admited?: Yes Does the pt Need Aspirin: No Condition: Stable Referrals: PRIMARY CARE, [Primary Care Provider] - 3-5 Days Time of Disposition: 05:53 (Dr Rojo)
[2021-12-28 23:38] LABS: Hematocrit 39.5 % (35.5-45.6); Hemoglobin 12.5 gm/dl (11.8-15.2); Mean Corpuscular HGB Conc 32 % (32-34); Mean Corpuscular Volume 96 fl (84-94); Red Blood Count 4.11 M/mm3 (3.65-5.03); Red Cell Distribution Width 18.1 % (13.2-15.2)
[2021-12-28 23:40] LABS: Platelet Count 69 K/mm3 (140-440)
[2021-12-28 23:41] LABS: INR 1.11 (0.87-1.13)
[2021-12-28 23:42] LABS: Partial Thromboplastin Time 33.4 Sec. (24.2-36.6)
[2021-12-28] MEDS ORDERED: MIDAZOLAM 5 MG/5 ML INJ MDV IV NR (23:45)
[2021-12-28 23:57] LABS: Alanine Aminotransferase 33 units/L (7-56); Albumin 3.4 g/dL (3.9-5); BUN/Creatinine Ratio 11; Blood Urea Nitrogen 10 mg/dL (9-20); Calcium 8.9 mg/dL (8.4-10.2); Hemolysis Index 13
[2021-12-29 00:06] LABS: Free T4 (Free Thyroxine) 1.68 ng/dL (0.76-1.46)
[2021-12-29 00:12] LABS: Band Neutrophils # (Manual) 0.7 K/mm3; Basophils % (Manual) 0 % (0.0-1.8); Eosinophils % (Manual) 0 % (0.0-4.3); Platelet Estimate Consistent w Auto; Total Cells Counted 100
[2021-12-29 00:18] LABS: Bilirubin,Urine Negative (Negative); Color,Urine Amber (Yellow)
[2021-12-29 00:19] LABS: Blood,Urine Large (Negative); Protein,Urine 300 mg/dL mg/dL (Negative); Urobilinogen,Urine 0.2 mg/dL (<2.0)
[2021-12-29 00:21] LABS: Amphetamine Screen,Urine PRESUMPTIVE NEGATIVE; Benzodiazepines Screen,Urine PRESUMPTIVE NEGATIVE; Cannabinoid Screen,Urine PRESUMPTIVE NEGATIVE; Cocaine Screen,Urine PRESUMPTIVE NEGATIVE; Methadone Screen,Urine PRESUMPTIVE NEGATIVE; Mucus,Urine FEW /HPF; Opiate Screen,Urine PRESUMPTIVE NEGATIVE
--- NOTE | 2021-12-29 00:43 | XRay Report ---
XR chest 1V ap INDICATION / CLINICAL INFORMATION: Dysrhythmia. COMPARISON: 11/08/2019 FINDINGS: SUPPORT DEVICES: None. HEART /PULMONARY VASCULATURE: No significant abnormality. LUNGS / PLEURA: No significant pulmonary or pleural abnormality. No pneumothorax. ADDITIONAL FINDINGS: No significant additional findings. IMPRESSION: 1. No acute findings. Signer Name: Monroe Spivey MD Signed: 12/29/2021 12:38 AM Workstation Name: [id number]
[2021-12-29] MEDS ORDERED: ACETAMINOPHEN 325 MG TAB PO PRN (05:49)
[2021-12-29] MEDS ORDERED: ONDANSETRON 4 MG/2 ML INJ IV PRN (05:49)
[2021-12-29] MEDS ORDERED: ALBUTEROL 2.5 MG/3 ML NEBU IH PRN (05:49)
[2021-12-29] MEDS ORDERED: MORPHINE 2 MG/1 ML INJ IV PRN (05:49)
[2021-12-29] MEDS ORDERED: MORPHINE 4 MG/1 ML INJ IV PRN (05:49)
[2021-12-29] MEDS ORDERED: THIAMINE 100 MG, FOLIC ACID 1 MG, MULTIPLE VITAMIN INJ, ADULT 10 ML in SODIUM CHLORIDE ... IV ONE (05:53)
--- NOTE | 2021-12-29 05:58 | History and Physical Report ---
History of Present Illness Date of examination: 12/29/21 Date of admission: 12/29/21 Chief complaint: Palpitation Shakiness Alcohol abuse History of present illness: 36 years old male with history of alcohol abuse was brought to the hospital with heart palpitation that started suddenly this evening while at home associated with generalized body muscle shakiness. Pt reports that he drink heavily only on Weekends and denies any illicit drug use. No other modifying or associated factors reported. In the emergency room patient is found to have tachycardic shakiness, also patient WBC is 17.3. Magnesium 1.50. So going to admit the patient we will put the patient on CIWA protocol and antibiotic Past History Past Medical History: liver disease, other (Esophageal varices, alcohol abuse) Past Surgical History: No surgical history Social history: smoking, alcohol abuse Family history: no significant family history Medications and Allergies Allergies Allergy/AdvReac Type Severity Reaction Status Date / Time No Known Allergies Allergy Verified 07/22/20 15:41 Home Medications Medication Instructions Recorded Confirmed Last Taken Type Ferrous Sulfate [Feosol 325 MG tab] 325 mg PO BID #60 tablet 07/24/20 Unknown Rx LORazepam [Ativan] 0.5 mg PO Q6H PRN #20 tablet 07/24/20 Unknown Rx Pantoprazole [Protonix TAB] 40 mg PO BID #60 tablet 07/24/20 Unknown Rx Sucralfate [Carafate] 1 gm PO Q6HR #60 tablet 07/24/20 Unknown Rx Review of Systems Constitutional: fatigue, weakness, other (Palpitation) Exam - Constitutional Vitals: Temp Pulse Resp BP Pulse Ox 99.2 F 100 H 25 H 147/91 98 12/29/21 05:33 12/29/21 05:33 12/29/21 05:33 12/29/21 05:33 12/29/21 05:33 General appearance: Present: no acute distress, well-nourished - EENT Eyes: Present: PERRL ENT: hearing intact, clear oral mucosa - Neck Neck: Present: supple, normal ROM - Respiratory Respiratory effort: normal Respiratory: bilateral: CTA - Cardiovascular Heart Sounds: Present: S1 & S2. Absent: rub, click - Extremities Extremities: pulses symmetrical, No edema Peripheral Pulses: within normal limits - Abdominal General gastrointestinal: Present: soft, non-tender, non-distended, normal bowel sounds Male genitourinary: Present: normal - Integumentary Integumentary: Present: clear, warm, dry - Musculoskeletal Musculoskeletal: gait normal, strength equal bilaterally - Psychiatric Psychiatric: appropriate mood/affect, intact judgment & insight - Neurologic Neurologic: CNII-XII intact, moves all extremities HEART Score - HEART Score Troponin: Troponin T < 0.010 ng/mL (0.00-0.029) 12/28/21 23:18 Results - Labs CBC & Chem 7: 12/28/21 23:18 12/28/21 23:18 Labs: Laboratory Last Values WBC 17.3 K/mm3 (4.5-11.0) H 12/28/21 23:18 RBC 4.11 M/mm3 (3.65-5.03) 12/28/21 23:18 Hgb 12.5 gm/dl (11.8-15.2) 12/28/21 23:18 Hct 39.5 % (35.5-45.6) 12/28/21 23:18 MCV 96 fl (84-94) H 12/28/21 23:18 MCH 30 pg (28-32) 12/28/21 23:18 MCHC 32 % (32-34) 12/28/21 23:18 RDW 18.1 % (13.2-15.2) H 12/28/21 23:18 Plt Count 69 K/mm3 (140-440) L 12/28/21 23:18 Add Manual Diff Complete 12/28/21 23:18 Total Counted 100 12/28/21 23:18 Seg Neuts % (Manual) 89.0 % (40.0-70.0) H 12/28/21 23:18 Band Neutrophils % 4.0 % 12/28/21 23:18 Lymphocytes % (Manual) 1.0 % (13.4-35.0) L 12/28/21 23:18 Reactive Lymphs % (Man) 0 % 12/28/21 23:18 Monocytes % (Manual) 6.0 % (0.0-7.3) 12/28/21 23:18 Eosinophils % (Manual) 0 % (0.0-4.3) 12/28/21 23:18 Basophils % (Manual) 0 % (0.0-1.8) 12/28/21 23:18 Metamyelocytes % 0 % 12/28/21 23:18 Myelocytes % 0 % 12/28/21 23:18 Promyelocytes % 0 % 12/28/21 23:18 Blast Cells % 0 % 12/28/21 23:18 Nucleated RBC % Not Reportable 12/28/21 23:18 Seg Neutrophils # Man 15.4 K/mm3 (1.8-7.7) H 12/28/21 23:18 Band Neutrophils # 0.7 K/mm3 12/28/21 23:18 Lymphocytes # (Manual) 0.2 K/mm3 (1.2-5.4) L 12/28/21 23:18 Abs React Lymphs (Man) 0.0 K/mm3 12/28/21 23:18 Monocytes # (Manual) 1.0 K/mm3 (0.0-0.8) H 12/28/21 23:18 Eosinophils # (Manual) 0.0 K/mm3 (0.0-0.4) 12/28/21 23:18 Basophils # (Manual) 0.0 K/mm3 (0.0-0.1) 12/28/21 23:18 Metamyelocytes # 0.0 K/mm3 12/28/21 23:18 Myelocytes # 0.0 K/mm3 12/28/21 23:18 Promyelocytes # 0.0 K/mm3 12/28/21 23:18 Blast Cells # 0.0 K/mm3 12/28/21 23:18 WBC Morphology Not Reportable 12/28/21 23:18 Hypersegmented Neuts Not Reportable 12/28/21 23:18 Hyposegmented Neuts Not Reportable 12/28/21 23:18 Hypogranular Neuts Not Reportable 12/28/21 23:18 Smudge Cells Not Reportable 12/28/21 23:18 Toxic Granulation Not Reportable 12/28/21 23:18 Toxic Vacuolation Not Reportable 12/28/21 23:18 Dohle Bodies Not Reportable 12/28/21 23:18 Pelger-Huet Anomaly Not Reportable 12/28/21 23:18 Rusty Rods Not Reportable 12/28/21 23:18 Platelet Estimate Consistent w auto 12/28/21 23:18 Clumped Platelets Not Reportable 12/28/21 23:18 Plt Clumps, EDTA Not Reportable 12/28/21 23:18 Large Platelets Not Reportable 12/28/21 23:18 Giant Platelets Not Reportable 12/28/21 23:18 Platelet Satelliting Not Reportable 12/28/21 23:18 Plt Morphology Comment Not Reportable 12/28/21 23:18 RBC Morphology Not Reportable 12/28/21 23:18 Dimorphic RBCs Not Reportable 12/28/21 23:18 Polychromasia Not Reportable 12/28/21 23:18 Hypochromasia Not Reportable 12/28/21 23:18 Poikilocytosis Not Reportable 12/28/21 23:18 Anisocytosis Not Reportable 12/28/21 23:18 Microcytosis Not Reportable 12/28/21 23:18 Macrocytosis Not Reportable 12/28/21 23:18 Spherocytes Not Reportable 12/28/21 23:18 Pappenheimer Bodies Not Reportable 12/28/21 23:18 Sickle Cells Not Reportable 12/28/21 23:18 Target Cells Not Reportable 12/28/21 23:18 Tear Drop Cells Not Reportable 12/28/21 23:18 Ovalocytes Not Reportable 12/28/21 23:18 Helmet Cells Not Reportable 12/28/21 23:18 Hightower-[place] Bodies Not Reportable 12/28/21 23:18 [place] Rings Not Reportable 12/28/21 23:18 [place] Cells Not Reportable 12/28/21 23:18 Bite Cells Not Reportable 12/28/21 23:18 Crenated Cell Not Reportable 12/28/21 23:18 Elliptocytes Not Reportable 12/28/21 23:18 Acanthocytes (Spur) Not Reportable 12/28/21 23:18 Rouleaux Not Reportable 12/28/21 23:18 Hemoglobin C Crystals Not Reportable 12/28/21 23:18 Schistocytes Not Reportable 12/28/21 23:18 Malaria parasites Not Reportable 12/28/21 23:18 Mendez Bodies Not Reportable 12/28/21 23:18 Hem Pathologist Commnt No 12/28/21 23:18 PT 15.6 Sec. (12.2-14.9) H 12/28/21 23:18 INR 1.11 (0.87-1.13) 12/28/21 23:18 APTT 33.4 Sec. (24.2-36.6) 12/28/21 23:18 Sodium 136 mmol/L (137-145) L 12/28/21 23:18 Potassium 3.8 mmol/L (3.6-5.0) 12/28/21 23:18 Chloride 93.1 mmol/L (98-107) L 12/28/21 23:18 Carbon Dioxide 18 mmol/L (22-30) L 12/28/21 23:18 Anion Gap 29 mmol/L 12/28/21 23:18 BUN 10 mg/dL (9-20) 12/28/21 23:18 Creatinine 0.9 mg/dL (0.8-1.3) 12/28/21 23:18 Estimated GFR > 60 ml/min 12/28/21 23:18 BUN/Creatinine Ratio 11 % 12/28/21 23:18 Glucose 84 mg/dL (75-100) 12/28/21 23:18 Calcium 8.9 mg/dL (8.4-10.2) 12/28/21 23:18 Magnesium 1.50 mg/dL (1.7-2.3) L 12/28/21 23:18 Total Bilirubin 3.70 mg/dL (0.1-1.2) H 12/28/21 23:18 AST 238 units/L (5-40) H 12/28/21 23:18 ALT 33 units/L (7-56) 12/28/21 23:18 Alkaline Phosphatase 535 units/L (35-129) H 12/28/21 23:18 Troponin T < 0.010 ng/mL (0.00-0.029) 12/28/21 23:18 Total Protein 8.4 g/dL (6.3-8.2) H 12/28/21 23:18 Albumin 3.4 g/dL (3.9-5) L 12/28/21 23:18 Albumin/Globulin Ratio 0.7 % 12/28/21 23:18 TSH 2.330 mlU/mL (0.270-4.200) 12/28/21 23:18 Free T4 1.68 ng/dL (0.76-1.46) H 12/28/21 23:18 Urine Color [place] (Yellow) 12/29/21 00:04 Urine Turbidity Clear (Clear) 12/29/21 00:04 Urine pH 5.0 (5.0-7.0) 12/29/21 00:04 Ur Specific [place] 1.030 (1.003-1.030) 12/29/21 00:04 Urine Protein 300 mg/dl mg/dL (Negative) 12/29/21 00:04 Urine Glucose (UA) Negative mg/dL (Negative) 12/29/21 00:04 Urine Ketones 160 mg/dL (Negative) 12/29/21 00:04 Urine Blood Large (Negative) A 12/29/21 00:04 Urine Nitrite Negative (Negative) 12/29/21 00:04 Urine Bilirubin Negative (Negative) 12/29/21 00:04 Urine Urobilinogen 0.2 mg/dL (<2.0) 12/29/21 00:04 Ur Leukocyte Esterase Negative (Negative) 12/29/21 00:04 Urine WBC (Auto) 1.0 /HPF (0.0-6.0) 12/29/21 00:04 Urine RBC (Auto) 1.0 /HPF (0.0-6.0) 12/29/21 00:04 U Epithel Cells (Auto) 1.0 /HPF (0-13.0) 12/29/21 00:04 Urine Mucus Few /HPF 12/29/21 00:04 Urine Opiates Screen Presumptive negative 12/29/21 00:04 Urine Methadone Screen Presumptive negative 12/29/21 00:04 Ur Barbiturates Screen Presumptive negative 12/29/21 00:04 Ur Phencyclidine Scrn Presumptive negative 12/29/21 00:04 Ur Amphetamines Screen Presumptive negative 12/29/21 00:04 U Benzodiazepines Scrn Presumptive negative 12/29/21 00:04 Urine Cocaine Screen Presumptive negative 12/29/21 00:04 U Marijuana (THC) Screen Presumptive negative 12/29/21 00:04 Drugs of Abuse Note Disclamer 12/29/21 00:04 - Imaging and Cardiology Chest x-ray: report reviewed Assessment and Plan VTE prophylaxis?: Mechanical Plan of care discussed with patient/family: Yes - Patient Problems (1) Alcohol withdrawal Current Visit: Yes Status: Acute Qualifiers: Complication of substance-induced condition: with unspecified complication Qualified Code(s): F10.939 - Alcohol use, unspecified with withdrawal, unspecified Plan to address problem: Admit the patient to the medical floor telemetry. D5 half-normal saline at the rate of 100 cc/h. We will put the patient on CIWA protocol. We also put the patient on thiamine, folic acid and banana bag daily. We counseled regarding quit drinking (2) Palpitations Current Visit: Yes Status: Acute Plan to address problem: D5 half-normal saline at the rate of 100 cc/h. Lopressor 25 mg p.o. twice daily. We will monitor the patient closely (3) Shakiness Current Visit: Yes Status: Acute Plan to address problem: D5 half-normal saline at the rate of 100 cc/h. Lopressor 25 mg p.o. twice daily. We will monitor the patient closely (4) Alcoholic liver disease Current Visit: No Status: Acute Plan to address problem: D5 half-normal saline at the rate of 100 cc/h. Lopressor 25 mg p.o. twice daily. We will monitor the patient closely (5) Leukocytosis Current Visit: No Status: Acute Plan to address problem: Rocephin 1 g IV daily. We will recheck the CBC in the morning (6) Hypomagnesemia Current Visit: Yes Status: Acute Plan to address problem: Magnesium 2 g IV x1 dose. Recheck magnesium in the morning (7) DVT prophylaxis Current Visit: No Status: Acute Plan to address problem: SCD for DVT prophylaxis. Pepcid 20 mg p.o. twice daily for GI prophylaxis. Patient is a full code
[2021-12-29] MEDS ORDERED: D5W/0.45% NACL 1,000 ML IV SCH (06:00)
[2021-12-29] MEDS ORDERED: MAGNESIUM SULFATE 2 GM/50 ML BAG IV ONE ×2 (06:01→07:00)
[2021-12-29] MEDS: IPRATROPIUM/ALBUTEROL SULFATE 3 ML AMPUL.NEB IH SCH ×3 (10:13→20:10)
[2021-12-29] MEDS: LORazepam 0.5 MG TAB PO PRN ×3 (10:43→23:18)
[2021-12-29] MEDS: PANTOPRAZOLE 40 MG TAB PO SCH ×2 (10:43→21:33)
[2021-12-29] MEDS: FERROUS SULFATE 325 MG TAB PO SCH ×2 (10:43→21:33)
[2021-12-29] MEDS: FAMOTIDINE 20 MG TAB PO SCH ×2 (10:43→21:33)
--- NOTE | 2021-12-29 11:38 | Progress Note ---
Assessment and Plan Assessment and plan: VTE prophylaxis?: Mechanical Plan of care discussed with patient/family: Yes - Patient Problems -- Alcohol withdrawal D5 half-normal saline at the rate of 100 cc/h. CIWA protocol initiated. Continue thiamine, folic acid and banana bag daily. --Palpitations/ tachycardia gentle alcohol withdrawal symptoms D5 half-normal saline at the rate of 100 cc/h. Lopressor 25 mg p.o. twice daily. We will monitor the patient closely -- Shakiness/tremulousness tremulousness due to alcohol withdrawal symptoms D5 half-normal saline at the rate of 100 cc/h. Lopressor 25 mg p.o. twice daily. We will monitor the patient closely -- Alcoholic liver disease D5 half-normal saline at the rate of 100 cc/h. Lopressor 25 mg p.o. twice daily. We will monitor the patient closely --Leukocytosis Rocephin 1 g IV daily. We will recheck the CBC in the morning -- Hypomagnesemia Magnesium 2 g IV x1 dose. Recheck magnesium in the morning --Full CODE STATUS -- DVT prophylaxis SCD for DVT prophylaxis. Pepcid 20 mg p.o. twice daily for GI prophylaxis Closely monitor the patient and adjust management as needed Plan of care reviewed with the patient and his nurse Advance care planning; extensively discussed with the patient, his condition I discussed his test reports, I discussed with him the treatment plan, I discussed with him the liver findings I discussed with him the importance to quit alcohol use, I also discussed with him advised to seek alcohol rehabilitation +35 minutes Preventive health care care planning; +30 minutes Advised him to join alcohol rehabilitation, and attend alcohol Anonymous support group I also advised lifestyle changes, advised good nutrition and vitamins Prolonged care plan inpatient History Interval history: I have seen and examined the patient at the bedside Patient's chart and medications reviewed Patient was admitted with alcohol withdrawal symptoms Patient is tremulous responding to simple questions appropriately No seizures, patient is on CIWA protocol Vital signs noted Hospitalist Physical - Constitutional Vitals: Temp Pulse Resp BP Pulse Ox 99.9 F H 68 18 134/86 97 12/29/21 08:45 12/29/21 10:13 12/29/21 10:13 12/29/21 08:45 12/29/21 08:45 General appearance: Present: no acute distress, well-nourished, other (Tremulous) - EENT Eyes: Present: PERRL, EOM intact - Neck Neck: Present: supple, normal ROM - Respiratory Respiratory effort: normal Respiratory: bilateral: diminished, negative: rales, rhonchi, wheezing - Cardiovascular Rhythm: regular Heart Sounds: Present: S1 & S2 (Tachycardia) - Extremities Extremities: no ischemia, No edema - Abdominal General gastrointestinal: soft, non-tender, non-distended, normal bowel sounds - Integumentary Integumentary: Present: clear, warm - Psychiatric Psychiatric: appropriate mood/affect, cooperative - Neurologic Neurologic: moves all extremities HEART Score - HEART Score Troponin: Troponin T < 0.010 ng/mL (0.00-0.029) 12/28/21 23:18 Results - Labs CBC & Chem 7: 12/28/21 23:18 12/28/21 23:18 Labs: Laboratory Last Values WBC 17.3 K/mm3 (4.5-11.0) H 12/28/21 23:18 RBC 4.11 M/mm3 (3.65-5.03) 12/28/21 23:18 Hgb 12.5 gm/dl (11.8-15.2) 12/28/21 23:18 Hct 39.5 % (35.5-45.6) 12/28/21 23:18 MCV 96 fl (84-94) H 12/28/21 23:18 MCH 30 pg (28-32) 12/28/21 23:18 MCHC 32 % (32-34) 12/28/21 23:18 RDW 18.1 % (13.2-15.2) H 12/28/21 23:18 Plt Count 69 K/mm3 (140-440) L 12/28/21 23:18 Add Manual Diff Complete 12/28/21 23:18 Total Counted 100 12/28/21 23:18 Seg Neuts % (Manual) 89.0 % (40.0-70.0) H 12/28/21 23:18 Band Neutrophils % 4.0 % 12/28/21 23:18 Lymphocytes % (Manual) 1.0 % (13.4-35.0) L 12/28/21 23:18 Reactive Lymphs % (Man) 0 % 12/28/21 23:18 Monocytes % (Manual) 6.0 % (0.0-7.3) 12/28/21 23:18 Eosinophils % (Manual) 0 % (0.0-4.3) 12/28/21 23:18 Basophils % (Manual) 0 % (0.0-1.8) 12/28/21 23:18 Metamyelocytes % 0 % 12/28/21 23:18 Myelocytes % 0 % 12/28/21 23:18 Promyelocytes % 0 % 12/28/21 23:18 Blast Cells % 0 % 12/28/21 23:18 Nucleated RBC % Not Reportable 12/28/21 23:18 Seg Neutrophils # Man 15.4 K/mm3 (1.8-7.7) H 12/28/21 23:18 Band Neutrophils # 0.7 K/mm3 12/28/21 23:18 Lymphocytes # (Manual) 0.2 K/mm3 (1.2-5.4) L 12/28/21 23:18 Abs React Lymphs (Man) 0.0 K/mm3 12/28/21 23:18 Monocytes # (Manual) 1.0 K/mm3 (0.0-0.8) H 12/28/21 23:18 Eosinophils # (Manual) 0.0 K/mm3 (0.0-0.4) 12/28/21 23:18 Basophils # (Manual) 0.0 K/mm3 (0.0-0.1) 12/28/21 23:18 Metamyelocytes # 0.0 K/mm3 12/28/21 23:18 Myelocytes # 0.0 K/mm3 12/28/21 23:18 Promyelocytes # 0.0 K/mm3 12/28/21 23:18 Blast Cells # 0.0 K/mm3 12/28/21 23:18 WBC Morphology Not Reportable 12/28/21 23:18 Hypersegmented Neuts Not Reportable 12/28/21 23:18 Hyposegmented Neuts Not Reportable 12/28/21 23:18 Hypogranular Neuts Not Reportable 12/28/21 23:18 Smudge Cells Not Reportable 12/28/21 23:18 Toxic Granulation Not Reportable 12/28/21 23:18 Toxic Vacuolation Not Reportable 12/28/21 23:18 Dohle Bodies Not Reportable 12/28/21 23:18 Pelger-Huet Anomaly Not Reportable 12/28/21 23:18 Rusty Rods Not Reportable 12/28/21 23:18 Platelet Estimate Consistent w auto 12/28/21 23:18 Clumped Platelets Not Reportable 12/28/21 23:18 Plt Clumps, EDTA Not Reportable 12/28/21 23:18 Large Platelets Not Reportable 12/28/21 23:18 Giant Platelets Not Reportable 12/28/21 23:18 Platelet Satelliting Not Reportable 12/28/21 23:18 Plt Morphology Comment Not Reportable 12/28/21 23:18 RBC Morphology Not Reportable 12/28/21 23:18 Dimorphic RBCs Not Reportable 12/28/21 23:18 Polychromasia Not Reportable 12/28/21 23:18 Hypochromasia Not Reportable 12/28/21 23:18 Poikilocytosis Not Reportable 12/28/21 23:18 Anisocytosis Not Reportable 12/28/21 23:18 Microcytosis Not Reportable 12/28/21 23:18 Macrocytosis Not Reportable 12/28/21 23:18 Spherocytes Not Reportable 12/28/21 23:18 Pappenheimer Bodies Not Reportable 12/28/21 23:18 Sickle Cells Not Reportable 12/28/21 23:18 Target Cells Not Reportable 12/28/21 23:18 Tear Drop Cells Not Reportable 12/28/21 23:18 Ovalocytes Not Reportable 12/28/21 23:18 Helmet Cells Not Reportable 12/28/21 23:18 [place] Bodies Not Reportable 12/28/21 23:18 [place] Rings Not Reportable 12/28/21 23:18 [place] Cells Not Reportable 12/28/21 23:18 Bite Cells Not Reportable 12/28/21 23:18 Crenated Cell Not Reportable 12/28/21 23:18 Elliptocytes Not Reportable 12/28/21 23:18 Acanthocytes (Spur) Not Reportable 12/28/21 23:18 Rouleaux Not Reportable 12/28/21 23:18 Hemoglobin C Crystals Not Reportable 12/28/21 23:18 Schistocytes Not Reportable 12/28/21 23:18 Malaria parasites Not Reportable 12/28/21 23:18 Mendez Bodies Not Reportable 12/28/21 23:18 Hem Pathologist Commnt No 12/28/21 23:18 PT 15.6 Sec. (12.2-14.9) H 12/28/21 23:18 INR 1.11 (0.87-1.13) 12/28/21 23:18 APTT 33.4 Sec. (24.2-36.6) 12/28/21 23:18 Sodium 136 mmol/L (137-145) L 12/28/21 23:18 Potassium 3.8 mmol/L (3.6-5.0) 12/28/21 23:18 Chloride 93.1 mmol/L (98-107) L 12/28/21 23:18 Carbon Dioxide 18 mmol/L (22-30) L 12/28/21 23:18 Anion Gap 29 mmol/L 12/28/21 23:18 BUN 10 mg/dL (9-20) 12/28/21 23:18 Creatinine 0.9 mg/dL (0.8-1.3) 12/28/21 23:18 Estimated GFR > 60 ml/min 12/28/21 23:18 BUN/Creatinine Ratio 11 % 12/28/21 23:18 Glucose 84 mg/dL (75-100) 12/28/21 23:18 Calcium 8.9 mg/dL (8.4-10.2) 12/28/21 23:18 Magnesium 1.50 mg/dL (1.7-2.3) L 12/28/21 23:18 Total Bilirubin 3.70 mg/dL (0.1-1.2) H 12/28/21 23:18 AST 238 units/L (5-40) H 12/28/21 23:18 ALT 33 units/L (7-56) 12/28/21 23:18 Alkaline Phosphatase 535 units/L (35-129) H 12/28/21 23:18 Troponin T < 0.010 ng/mL (0.00-0.029) 12/28/21 23:18 Total Protein 8.4 g/dL (6.3-8.2) H 12/28/21 23:18 Albumin 3.4 g/dL (3.9-5) L 12/28/21 23:18 Albumin/Globulin Ratio 0.7 % 12/28/21 23:18 TSH 2.330 mlU/mL (0.270-4.200) 12/28/21 23:18 Free T4 1.68 ng/dL (0.76-1.46) H 12/28/21 23:18 Urine Color [place] (Yellow) 12/29/21 00:04 Urine Turbidity Clear (Clear) 12/29/21 00:04 Urine pH 5.0 (5.0-7.0) 12/29/21 00:04 Ur Specific [place] 1.030 (1.003-1.030) 12/29/21 00:04 Urine Protein 300 mg/dl mg/dL (Negative) 12/29/21 00:04 Urine Glucose (UA) Negative mg/dL (Negative) 12/29/21 00:04 Urine Ketones 160 mg/dL (Negative) 12/29/21 00:04 Urine Blood Large (Negative) A 12/29/21 00:04 Urine Nitrite Negative (Negative) 12/29/21 00:04 Urine Bilirubin Negative (Negative) 12/29/21 00:04 Urine Urobilinogen 0.2 mg/dL (<2.0) 12/29/21 00:04 Ur Leukocyte Esterase Negative (Negative) 12/29/21 00:04 Urine WBC (Auto) 1.0 /HPF (0.0-6.0) 12/29/21 00:04 Urine RBC (Auto) 1.0 /HPF (0.0-6.0) 12/29/21 00:04 U Epithel Cells (Auto) 1.0 /HPF (0-13.0) 12/29/21 00:04 Urine Mucus Few /HPF 12/29/21 00:04 Urine Opiates Screen Presumptive negative 12/29/21 00:04 Urine Methadone Screen Presumptive negative 12/29/21 00:04 Ur Barbiturates Screen Presumptive negative 12/29/21 00:04 Ur Phencyclidine Scrn Presumptive negative 12/29/21 00:04 Ur Amphetamines Screen Presumptive negative 12/29/21 00:04 U Benzodiazepines Scrn Presumptive negative 12/29/21 00:04 Urine Cocaine Screen Presumptive negative 12/29/21 00:04 U Marijuana (THC) Screen Presumptive negative 12/29/21 00:04 Drugs of Abuse Note Disclamer 12/29/21 00:04 Active Medications - Current Medications Current Medications: Generic Name Dose Route Start Last Admin Trade Name Freq PRN Reason Stop Dose Admin Acetaminophen 650 mg 12/29/21 05:49 Acetaminophen 325 Mg Tab PO Q4H PRN Pain MILD(1-3)/Fever >100.5/[place]IL[place] Albuterol 2.5 mg 12/29/21 05:49 Albuterol 2.5 Mg/3 Ml Nebu IH Q3HRT PRN Shortness Of Breath Albuterol/Ipratropium 1 ampul 12/29/21 08:00 12/29/21 10:13 Ipratropium/Albuterol Sulfate 3 Ml Ampul.Neb IH 1 ampul Q6HRT STEPHAN Administration Chlordiazepoxide HCl 50 mg 12/29/21 05:49 Chlordiazepoxide 25 Mg Cap PO Q1H PRN CIWA-Ar 8-15 Famotidine 20 mg 12/29/21 10:00 12/29/21 10:43 Famotidine 20 Mg Tab PO 20 mg BID STEPHAN Administration Ferrous Sulfate 325 mg 12/29/21 10:00 12/29/21 10:43 Ferrous Sulfate 325 Mg Tab PO 325 mg BID STEPHAN Administration Haloperidol Lactate 5 mg 12/29/21 05:49 Haloperidol Lactate 5 Mg/1 Ml Inj IV Q1H PRN Unrespon. to mult. doses BZD's Dextrose/Sodium Chloride 1,000 mls @ 100 mls/hr 12/29/21 06:00 D5/0.45ns IV DIRECT STEPHAN Ceftriaxone Sodium 1 gm in 50 mls @ 100 mls/hr 12/29/21 07:00 Rocephin/Ns 1 Gm/50 Ml IV 01/03/22 06:59 Q24H STEPHAN Protocol Lorazepam 0.5 mg 12/29/21 05:52 12/29/21 10:43 Lorazepam 0.5 Mg Tab PO 0.5 mg Q6H PRN Administration Anxiety Morphine Sulfate 2 mg 12/29/21 05:49 Morphine 2 Mg/1 Ml Inj IV Q4H PRN Pain, Moderate (4-6) Morphine Sulfate 4 mg 12/29/21 05:49 Morphine 4 Mg/1 Ml Inj IV Q4H PRN Pain , Severe (7-10) Ondansetron HCl 4 mg 12/29/21 05:49 Ondansetron 4 Mg/2 Ml Inj IV Q8H PRN Nausea And Vomiting Pantoprazole Sodium 40 mg 12/29/21 10:00 12/29/21 10:43 Pantoprazole 40 Mg Tab PO 40 mg BID STEPHAN Administration Sodium Chloride 10 ml 12/29/21 10:00 12/29/21 10:43 Sodium Chloride 0.9% 10 Ml Flush Syringe IV 10 ml BID STEPHAN Administration Sodium Chloride 10 ml 12/29/21 05:49 Sodium Chloride 0.9% 10 Ml Flush Syringe IV PRN PRN LINE FLUSH Sucralfate 1 gm 12/29/21 06:00 Sucralfate 1 Gm Tab PO Q6HR STEPHAN
[2021-12-29] MEDS: SUCRALFATE 1 GM TAB PO SCH ×4 (11:59→23:16)
[2021-12-29] MEDS: chlordiazePOXIDE 25 MG CAP PO PRN ×2 (14:26→21:39)
[2021-12-29] MEDS: cefTRIAXone/NS 1 GM/50 ML 1 GM/50 ML BAG IV SCH (21:28)
[2021-12-30] MEDS: HALOPERIDOL LACTATE 5 MG/1 ML INJ IV PRN ×3 (02:36→08:44)
[2021-12-30 05:13] LABS: Basophils # (Auto) 0.1 K/mm3 (0.0-0.1); Basophils % (Auto) 0.7 % (0.0-1.8); Eosinophils # (Auto) 0.1 K/mm3 (0.0-0.4); Eosinophils % (Auto) 1.7 % (0.0-4.3); Hematocrit 34.1 % (35.5-45.6); Hemoglobin 11.1 gm/dl (11.8-15.2); Lymphocytes # (Auto) 0.8 K/mm3 (1.2-5.4); Lymphocytes % (Auto) 9.3 % (13.4-35.0); Mean Corpuscular HGB Conc 33 % (32-34); Mean Corpuscular Volume 97 fl (84-94); Monocytes # (Auto) 0.9 K/mm3 (0.0-0.8); Monocytes % (Auto) 11.1 % (0.0-7.3); Red Cell Distribution Width 17.8 % (13.2-15.2)
[2021-12-30 05:14] LABS: Platelet Count 70 K/mm3 (140-440)
[2021-12-30 05:31] LABS: Alanine Aminotransferase 31 units/L (7-56); Bilirubin,Direct 2.1 mg/dL (0-0.2); Blood Urea Nitrogen 10 mg/dL (9-20); Calcium 7.6 mg/dL (8.4-10.2); Hemolysis Index 4
[2021-12-30 05:37] LABS: BUN/Creatinine Ratio 25
[2021-12-30 05:39] VITALS: BP 129/90
[2021-12-30] MEDS: cefTRIAXone/NS 1 GM/50 ML 1 GM/50 ML BAG IV SCH (06:12)
[2021-12-30] MEDS: SUCRALFATE 1 GM TAB PO SCH ×2 (06:13→13:10)
[2021-12-30] MEDS: IPRATROPIUM/ALBUTEROL SULFATE 3 ML AMPUL.NEB IH SCH ×2 (08:23→13:10)
--- NOTE | 2021-12-30 08:51 | Electrocardiograph Report ---
[facility] Test Date: 2021-12-28 Test Time: 22:17:50 Pat Name: YESENIA FOX Department: Room: A387 1 Gender: M Dispatch Officer: SABINE : 1985 Requested By: LOULOU CORDOBA Order Number: [id number] Reading MD: Shorty Ureña Measurements Intervals [place] Rate: 132 P: 34 [place]: 119 QRS: 30 QRSD: 129 T: 20 QT: 334 QTc: 495 Interpretive Statements Sinus tachycardia Right bundle branch block No previous ECG available for comparison Electronically Signed On 12-30-2021 8:51:03 EDT by Shorty Ureña
[2021-12-30] MEDS: FERROUS SULFATE 325 MG TAB PO SCH (09:01)
[2021-12-30] MEDS: PANTOPRAZOLE 40 MG TAB PO SCH (09:01)
--- NOTE | 2021-12-30 12:21 | Discharge Summary ---
Providers - Providers Date of Admission: 12/29/21 05:49 Date of discharge: 12/30/21 Attending physician: HEIDI THURMAN Primary care physician: [facility] Hospitalization Reason for admission: Palpitations/tremulousness/alcohol withdrawal symptoms Condition: Stable Pertinent studies: Chest x-ray; no acute abnormality noted Hospital course: -36-year-old male patient with significant past medical history of chronic alcohol use was admitted through emergency room with palpitations tachycardia, tremulousness probably due to alcohol drawl symptoms patient was initially evaluated noted to have acute liver disease with elevated transaminases patient was symptomatically managed placed on CIWA protocol and monitored alcohol withdrawal symptoms patient received multivitamins and folic acid as well as banana bag with all the electrolytes. Patient's symptoms slowly but gradually improved today patient is comfortable very minimal tremulousness alert awake oriented ambulatory without support tolerated oral diet on patient wants to go home patient was strongly counseled advised to quit alcohol intake, advised to seek alcohol rehab patient, and also strongly advised to join alcohol Anonymous for alcohol rehabilitation. Patient verbalized understanding,Patient is hemodynamically and clinically stabl e Patient was discharged with family member with,Patient is stable at discharge Advised to follow primary care physician in 5 to 7 days Discharge diagnosis: -- Alcohol withdrawal D5 half-normal saline at the rate of 100 cc/h. CIWA protocol initiated. Continue thiamine, folic acid and banana bag daily. --Palpitations/resolved tachycardia gentle alcohol withdrawal symptoms D5 half-normal saline at the rate of 100 cc/h. Lopressor 25 mg p.o. twice daily. We will monitor the patient closely -- Shakiness/tremulousness slightly improved tremulousness due to alcohol withdrawal symptoms D5 half-normal saline at the rate of 100 cc/h. Lopressor 25 mg p.o. twice daily. We will monitor the patient closely -- Alcoholic liver disease D5 half-normal saline at the rate of 100 cc/h. Lopressor 25 mg p.o. twice daily. We will monitor the patient closely --Leukocytosis Rocephin 1 g IV daily. We will recheck the CBC in the morning -- Hypomagnesemia replenished Magnesium 2 g IV x1 dose. Recheck magnesium in the morning --Full CODE STATUS -- DVT prophylaxis SCD for DVT prophylaxis. Pepcid 20 mg p.o. twice daily for GI prophylaxis Stable at discharge Disposition: 01 HOME / SELF CARE / HOMELESS Final Discharge Diagnosis (Prints w/discharge instructions): Alcohol withdrawal/ symptoms/improved. Tachycardia/palpitations. Shakiness/tremulousness improved. Alcoholic liver disease. Leukocytosis/resolved. Hypokalemia/replenished. Hypomagnesemia/corrected. Hypophosphatemia/replenished Time spent for discharge: 35 minutes Core Measure Documentation - Palliative Care Palliative Care/ Comfort Measures: Not Applicable - Core Measures Any of the following diagnoses?: none Exam - Constitutional Vitals: Temp Pulse Resp BP Pulse Ox 98.8 F 103 H 20 129/90 99 12/30/21 05:37 12/30/21 08:24 12/30/21 08:24 12/30/21 05:37 12/30/21 08:24 General appearance: Present: no acute distress, well-nourished, other (Mild tremulousness) - EENT Eyes: Present: PERRL, EOM intact ENT: hearing intact, clear oral mucosa - Neck Neck: Present: supple, normal ROM - Respiratory Respiratory effort: normal Respiratory: bilateral: diminished, negative: rales, rhonchi, wheezing - Cardiovascular Rhythm: regular Heart Sounds: Present: S1 & S2 - Extremities Extremities: no ischemia, No edema - Abdominal General gastrointestinal: Present: soft, non-tender, non-distended, normal bowel sounds - Integumentary Integumentary: Present: clear, warm - Musculoskeletal Musculoskeletal: strength equal bilaterally, generalized weakness - Psychiatric Psychiatric: appropriate mood/affect, cooperative - Neurologic Neurologic: moves all extremities Plan Activity: advance as tolerated, fall precautions Diet: regular Additional Instructions: Advised to quit alcohol intake. Advised to seek alcohol rehabilitation upon discharge. Also advised to join alcohol Anonymous support group. Strongly advised not to drink and drive or operate heavy machinery. If you have worsening symptoms contact MD or go to the nearest emergency room as needed Follow up with: PRIMARY CARE,MD [Primary Care Provider] - 3-5 Days Prescriptions: Folic Acid 1 mg PO DAILY #30 Potassium Chloride [K-Dur] 20 meq PO BID #6 tab Phosphorus #1 [K-Phos Neutral] 250 mg PO BID #10 Thiamine [Vitamin B-1] 100 mg PO QDAY #30 tablet
[2021-12-30] MEDS ORDERED: POTASSIUM CHLORIDE ER 20 MEQ TAB PO NR (13:00)
[2021-12-30] MEDS ORDERED: POTASSIUM CHLORIDE ER 20 MEQ TAB PO ONE (13:00)
== END 2021-12-30 13:06 | disposition home or self-care (01) | DRG 309 ==
LOC: ED 21:50 → 3A 12-29 05:49
PROVIDERS: ADMIT Hospitalist; ATTEND Internal Medicine
DX: R00.0 Tachycardia, unspecified (principal); F10.239 Alcohol dependence with withdrawal, unspecified; E83.42 Hypomagnesemia; K70.9 Alcoholic liver disease, unspecified; D72.829 Elevated white blood cell count, unspecified; E87.6 Hypokalemia; E83.39 Other disorders of phosphorus metabolism; Y90.9 Presence of alcohol in blood, level not specified
CPT/HCPCS: 36415; 71045; 80048; 80053; 80076; 80307; 81001; 83735; 84100; 84439; 84443; 84484; 85007; 85025; 85610; 85730; 93005; 94640; G0378; J3490; J7070; J0696; J1630; J2250; J3411; J3475; J7030